=== PATIENT | female | born 1970 | race Caucasian/White ===

== ENCOUNTER 2023-05-02 10:42 | Observation (INO) | payer MEDICARE ==
[2023-05-02] MEDS ORDERED: Magnesium 2 GM/50 ML BAG (IN WATER) ONE (11:18)
[2023-05-02] MEDS ORDERED: methylPREDNISolone Sod Succ/PF 125 MG/2 ML VIAL ONE (11:18)
[2023-05-02] MEDS ORDERED: Ondansetron PF 4 MG/2 ML Vial ONE ×2 (11:18→23:45)
[2023-05-02] MEDS ORDERED: Ipratropium/Albuterol 3 ML NEB ONE (11:18)
[2023-05-02 11:36] LABS: #Monocytes 0.5 thou/uL (0.11-0.59); #Neutrophils 5.8 thou/uL (1.40-6.50); %Basophils 0.3 % (0.0-1.0); %Lymphocytes 4.6 % (21.0-51.0); %Monocytes 7.5 % (0.0-10.0); Hematocrit 53.2 % (36.0-47.0); Hemoglobin 17.9 g/dL (12.0-16.0); Mean Corpuscular HGB CONC 33.6 g/dL (32.0-36.0); Mean Corpuscular Hemoglobin 28.2 pg (27.0-31.0); Mean Corpuscular Volume 83.9 fl (78.0-98.0); Mean Platelet Volume 10.9 fL (7.4-10.4); Platelet Count 157 10x3/uL (130-400); RBC Distribution Width 14.4 % (11.5-14.5); Red Blood Cell (RBC) Count 6.34 mill/uL (4.20-5.40); White Blood Cell (WBC) Count 6.7 10x3/uL (4.8-10.8)
[2023-05-02] MEDS ORDERED: LevoFLOXacin 750 mg/D5W 150 ml Premix Bag ONE (11:56)
[2023-05-02 12:03] LABS: ALT (SGPT) 40 U/L (8-55); AST (SGOT) 46 U/L (5-34); Albumin 4.5 g/dL (3.5-5.0); Alkaline Phosphatase 96 U/L (40-110); Anion Gap 12 mmol/L (10-20); BUN (Urea Nitrogen) 10 mg/dL (9.8-20.1); Bilirubin, Total 0.6 mg/dL (0.2-1.2); Calc. Creatinine Clearance 0 mL/min (70-130); Calcium 9.3 mg/dL (7.8-10.44); Carbon Dioxide 31 mmol/L (22-29); Chloride 98 mmol/L (98-107); Estimated GFR 76; Globulin 3.1 g/dL (2.4-3.5); Glucose 153 mg/dL (70-105); Lipase 35 U/L (8-78); Magnesium 1.8 mg/dL (1.6-2.6); Potassium 3.4 mmol/L (3.5-5.1); Protein, Total 7.6 g/dL (6.0-8.3); Sodium 138 mmol/L (136-145)
[2023-05-02 12:08] LABS: Troponin I 0.018 ng/mL (< 0.028)
[2023-05-02 12:44] LABS: SARS-CoV-2 NAA Rapid Test Not Detected (NotDetected)
[2023-05-02] MEDS ORDERED: Iopamidol-370 76% 500 ML MDV (1 ML CHARGE) ONE (13:39)
[2023-05-02] MEDS ORDERED: Vancomycin 1 GM/200 ML (FROZEN) BAG ONE (14:06)
[2023-05-02 14:34] LABS: Bilirubin Negative (Negative); Blood, Urine 1+ (Negative); CAUTI Indications for Culture Alt mental st,lethar; Clarity Clear (Clear); Glucose, Urine (Dipstick) Normal (Negative); Ketone, Urine Negative (Negative); Leukocyte Negative Leu/uL (Negative); Nitrite Negative (Negative); Protein, Urine (Dipstick) 50 mg/dL (Neg-Trace); RBC/HPF 0-3 HPF (0-3); Squamous Epithelial 0-3 HPF (0-3); Urobilinogen Normal mg/dL (Less than 2); WBC/HPF 0-3 HPF (0-3)
[2023-05-02 14:35] LABS: Bacteria/HPF 1+ HPF (None Seen); Specific Gravity, Urine 1.054 (1.002-1.036)
[2023-05-02 14:36] LABS: Urine Culture Reflex No No
[2023-05-02] MEDS ORDERED: Ondansetron ODT 4 MG TAB PO PRN (16:56)
[2023-05-02] MEDS ORDERED: Ondansetron PF 4 MG/2 ML Vial IVP PRN (16:56)
[2023-05-02] MEDS ORDERED: Ipratropium/Albuterol 3 ML NEB NEB PRN (17:02)
[2023-05-02] MEDS ORDERED: Acetaminophen 325 MG TAB ONE (18:07)
[2023-05-02] MEDS: Acetaminophen 325 MG TAB PO PRN (18:13)
[2023-05-02] MEDS ORDERED: Nicotine 14 MG PATCH ONE (18:21)
[2023-05-02] MEDS: Nicotine 14 MG PATCH TD SCH (18:23)
[2023-05-02] MEDS: Ipratropium/Albuterol 3 ML NEB NEB SCH (20:00)
[2023-05-02] MEDS ORDERED: Azithromycin 250 MG TAB PO SCH (21:00)
[2023-05-02 21:40] LABS: Legionella Urinary Ag Negative (Negative)
[2023-05-02 21:57] LABS: Strep pneumo Urine Ag NEGATIVE (NEGATIVE)
[2023-05-02] MEDS ORDERED: Azithromycin 250 MG TAB ONE (23:36)
[2023-05-03] MEDS ORDERED: Ipratropium/Albuterol 3 ML NEB ONE (01:22)
[2023-05-03] MEDS: Ipratropium/Albuterol 3 ML NEB NEB SCH ×3 (01:24→14:03)
[2023-05-03 04:24] VITALS: BMI 47.8
[2023-05-03 05:30] LABS: #Monocytes 0.6 thou/uL (0.11-0.59); #Neutrophils 6.5 thou/uL (1.40-6.50); %Basophils 0.1 % (0.0-1.0); %Lymphocytes 7.4 % (21.0-51.0); %Monocytes 7.1 % (0.0-10.0); %Neutrophils 84.8 % (42.0-75.0); Hematocrit 46.5 % (36.0-47.0); Hemoglobin 15.2 g/dL (12.0-16.0); Mean Corpuscular HGB CONC 32.7 g/dL (32.0-36.0); Mean Corpuscular Hemoglobin 28.3 pg (27.0-31.0); Mean Platelet Volume 11.1 fL (7.4-10.4); Platelet Count 145 10x3/uL (130-400); RBC Distribution Width 14.2 % (11.5-14.5); Red Blood Cell (RBC) Count 5.37 mill/uL (4.20-5.40); White Blood Cell (WBC) Count 7.7 10x3/uL (4.8-10.8)
[2023-05-03 05:41] LABS: Mean Corpuscular Volume 86.6 fl (78.0-98.0)
[2023-05-03 06:01] LABS: ALT (SGPT) 38 U/L (8-55); AST (SGOT) 58 U/L (5-34); Albumin 3.9 g/dL (3.5-5.0); Alkaline Phosphatase 76 U/L (40-110); Anion Gap 11 mmol/L (10-20); BUN (Urea Nitrogen) 13 mg/dL (9.8-20.1); Bilirubin, Total 0.3 mg/dL (0.2-1.2); Calc. Creatinine Clearance 149 mL/min (70-130); Calcium 8.4 mg/dL (7.8-10.44); Carbon Dioxide 32 mmol/L (22-29); Chloride 100 mmol/L (98-107); Estimated GFR 77; Globulin 2.6 g/dL (2.4-3.5); Glucose 151 mg/dL (70-105); Magnesium 2.1 mg/dL (1.6-2.6); Potassium 3.1 mmol/L (3.5-5.1); Protein, Total 6.5 g/dL (6.0-8.3); Sodium 140 mmol/L (136-145)
[2023-05-03] MEDS ORDERED: Ibuprofen 600 MG TAB PO PRN (07:57)
[2023-05-03] MEDS ORDERED: Benzonatate 100 MG CAP PO PRN (07:58)
[2023-05-03] MEDS ORDERED: predniSONE 20 MG TAB PO SCH (08:00)
[2023-05-03] MEDS ORDERED: Potassium Chloride 20 MEQ TAB PO SCH (08:15)
[2023-05-03] MEDS: guaiFENesin 200 MG TAB PO SCH ×3 (08:37→17:19)
[2023-05-03] MEDS: Acetaminophen 325 MG TAB PO PRN ×2 (08:37→17:19)
[2023-05-03] MEDS ORDERED: Azithromycin 250 MG TAB PO SCH ×2 (09:00→21:00)
[2023-05-03] MEDS ORDERED: Enoxaparin 40 MG (0.4 mL) SYRINGE SC SCH (09:00)
[2023-05-03] MEDS ORDERED: cefTRIAXone\\ROCEPHIN 1 GM in Sodium Chloride 0.9% 100 ML IVPB SCH (09:00)
[2023-05-03 13:36] LABS: Potassium 3.7 mmol/L (3.5-5.1)
[2023-05-03] MEDS ORDERED: Promethazine 25 MG TAB PO PRN (16:04)
[2023-05-03 16:06] VITALS: BP 130/68; TEMP 98.8
[2023-05-03] MEDS: Nicotine 14 MG PATCH TD SCH (17:19)
== END 2023-05-03 17:45 | disposition home or self-care (01) ==
LOC: ERS 10:42 → ERHOLD 15:24 → 2SW 05-03 03:57
PROVIDERS: ADMIT Emergency Medicine; ATTEND Emergency Medicine
DX: U07.1 COVID-19 (principal); J44.89 Other specified chronic obstructive pulmonary disease; I10 Essential (primary) hypertension; E78.5 Hyperlipidemia, unspecified; M79.7 Fibromyalgia; E87.6 Hypokalemia; F17.210 Nicotine dependence, cigarettes, uncomplicated; Z88.8 Allergy status to other drugs, medicaments and biological substances; Z79.899 Other long term (current) drug therapy; Z90.89 Acquired absence of other organs; Z90.49 Acquired absence of other specified parts of digestive tract; Z98.890 Other specified postprocedural states
CPT/HCPCS: 0240U; 71045; 71275; 80053 ×2; 81001; 83605; 83690; 83735 ×2; 83880; 84132; 84145 ×2; 84484; 85025 ×2; 85379; 87040; 87449; 87633; 87899; 93005; 94640 ×2; 96372; 96375 ×2; G0378 ×3; J3370; 36415; J0696; J1650; J1956; J2405; J2930; J3475; J3490; J7512; J7620; Q0162; Q9967